=== PATIENT | female | born 1980 | race Caucasian/White ===

== ENCOUNTER → 2018-06-27 10:13 | Outpatient (CLI) | payer BC, SELFPAY ==
[2018-06-28 10:56] LABS: HSV 1 IgG < 0.91 index (0.00-0.90); HSV 2 IgG < 0.91 index (0.00-0.90)
[2018-07-01 22:42] LABS: HSV Culture Without Typing Positive (.)
== END ==
PROVIDERS: Visit Provider Obstetrics & Gynecology
DX: N76.0 Acute vaginitis (principal)
CPT/HCPCS: 36415; 86695; 86696; 87255

== ENCOUNTER → 2018-11-03 | Outpatient (CLI) | payer BC, SELFPAY ==
[2018-11-05 05:06] LABS: Immunoglobulin G 769 mg/dL (700-1600)
[2018-11-07 11:48] LABS: Immunoglobulin M 60 mg/dL (26-217)
[2018-11-09 08:57] LABS: HPV HC, High Risk Negative (Negative)
== END | disposition home or self-care (01) ==
LOC: WOBLAB 13:29
PROVIDERS: Visit Provider Obstetrics & Gynecology
DX: A60.04 Herpesviral vulvovaginitis (principal); Z12.4 Encounter for screening for malignant neoplasm of cervix
CPT/HCPCS: 36415; 82784; 87624; 88175; G0145

== ENCOUNTER → 2018-11-21 14:46 | Outpatient (CLI) | payer BC, SELFPAY ==
[2015-12-08 11:10] VITALS: BMI 21.3
[2018-11-23 12:39] LABS: HSV 2 IgG < 0.91 index (0.00-0.90)
== END ==
PROVIDERS: Visit Provider Obstetrics & Gynecology
DX: A60.04 Herpesviral vulvovaginitis (principal)
CPT/HCPCS: 86695; 86696

== ENCOUNTER → 2019-12-19 14:32 | Outpatient (CLI) | payer BC, SELFPAY ==
[2015-12-08 11:10] VITALS: BMI 21.3
[2019-12-19 15:57] LABS: Color, Urine Yellow (Yellow); Glucose, Dipstick Normal (Normal); Ketone-Dipstick Negative (Negative); Leukocyte Esterase-Dipstick Negative /ul (Negative); Nitrite-Dipstick Negative (Negative); Occult Blood-Urine 10 /ul (Negative); Protein-Dipstick Negative (Negative); Specific Gravity, Urine 1.005 (1.002-1.030); Urine Bilirubin Dipstick Negative (Negative); Urine Clarity Clear (Clear); Urine Urobilinogen Normal (Normal)
== END ==
PROVIDERS: Visit Provider Obstetrics & Gynecology
DX: R30.0 Dysuria (principal)
CPT/HCPCS: 81002; 87086

== ENCOUNTER 2020-04-08 05:58 | Day surgery (SDC) | payer BC, SELFPAY ==
[2020-04-04 15:44] LABS: Hematocrit 38.1 % (37-47); Hemoglobin 12.5 g/dL (12.0-15.0); Mean Corp Hgb Conc 32.8 g/dL (32-36); Mean Corpuscular Volume 91.6 fL (81-99); Mean Platelet Vol. 10.1 fl (6.2-12.0); Platelet Count 329 K/mm3 (150-450); RBC Distribution Width CV 12.2 % (11.6-14.6); RBC Distribution Width SD 41.2 fl (35.1-43.9); Red Blood Count 4.16 M/mm3 (4.2-5.4); White Blood Count 6.2 K/mm3 (4.4-11.0)
--- NOTE | 2020-04-07 18:18 | PCM.HPOB.BLA ---
History and Physical Date of Admission: 04/08/20 Surgical History and Physical Name: ALTAF RICHTER Age: 40 Date of : 1980 Altaf Richter, a 40 year old female 2 0 0 0 2, presents for Total laparoscopic hysterectomy, bilateral salpingectomy, cystoscopy. Possible removal of filshie clips on April 08, 2020 at 7:30. -- Pt with pain with intercourse for 2 months. Pain resolves within 30 minutes with rest. Pt also started to have diarrhea, normally has constipation with IBS and known diverticular disease. Denies fevers chills, n/v. Some pain with urination. Spotting after intercourse a few times, this is common for her since she was young. She went to see PCP and they advised daily fiber which did not help and made things worse. She then became very constipated. She also reports gluten and dairy allergy. She is on a Probiotic but not taking this on regular basis yet. Encouraged to try taking daily before deciding this won't help. She is concerned about the clips that are not in place. Had a colonoscopy at [facility] on 02-23-[address] Corbett. That was overall negative. Distress increases with lifting and IC and physical activity. Abdominal pain which began 4 months ago. Altaf claims it started h/o of IBS It is located in the lower abdomen. It is aggravated by lifting, intercourse. Additional comments are: trying to find answers. MEDICATIONS HISTORY: Current medications prescribed by our practice are: 1. Valtrex 1 gram tablet, as needed Patient is also takin. Adderall XR 20 mg capsule,extended release 24hr, one daily 2. Prilosec 40 mg capsule,delayed release(/EC), one daily ALLERGIES: Skelaxen, Seizures, Skelaxin and Seizures Infections - Chicken pox, HPV, Gilchrist and HSV Illnesses - gastric ulcers, diverticulosis Hospitalizations - Childbirth, see surgery and Hospitalized x 3 days for Mastitis after 2nd delivery Hx Cryo and H. Pylori; Review of Systems: GENERAL - pelvic pain SKIN - Denies skin changes EYES - Denies visual changes EARS - Denies difficulty hearing NOSE - Denies nasal congestion or bleeding MOUTH - Denies sore throat or difficulty swallowing NECK - Denies pain or swelling RESPIRATORY - Denies shortness of breath or wheezing CARDIOVASCULAR - Denies palpitations or chest pain GASTROINTESTINAL - constipation GENITOURINARY - Denies dysuria, frequency of urination, incontinence of urine MUSCULOSKELETAL - Denies joint or muscle pain NEUROLOGICAL - Denies localized numbness or weakness PSYCHIATRIC - Denies depression or anxiety ENDOCRINE - Denies heat or cold intolerance, weight loss or gain HEMATO-IMMUNOLOGIC - Denies excessive bleeding with cuts SOCIAL HISTORY: Alcohol Use - drinks occasionally Smoking - denies smoking Employer - [employer] Job Description - Billing / Insurance Illicit Drug Use - denies use of street drugs Sexual Activity - single sexual partner Spouse-Sig Other Name - single, SO Michael Control - Tubal FAMILY HISTORY: Maternal Grandmother: Heart Disease. Maternal Grandfather: DM II. Paternal Grandmother: DM II. MENSTRUAL HISTORY: LMP Known?- DefiniteAmount/Duration - 7 days, Regularity - Regular, Frequency - variable days, LMP - 03/29/20, Age Onset Menarche - 14 PAST PREGNANCIES: Total Pregnancies - 2; Full Term Pregnancies - 2; Premature - 0; Abortions, Induced - 0; Abortions, Spontaneous - 0; Ectopics - 0; Multiple Births - 0; Living Children - 2 SURGICAL HISTORY: 1. Multiple surgeries Achilles Tendons Bilaterally-- Defect ; - 2. Tonsillectomy + Adenoidectomy ; - 3. Tubal 2003 ; - PHYSICAL EXAM BP- 116/80 Sitting, Right arm, regular cuff Weight- 114.31082 lbs Height- 64.25 inch BMI:19.46 CONSTITUTIONAL - NAD, well nourished, and well developed SKIN - No rash, lesions, or ulcers HEENT - Normocephalic, PERRLA, EOMI NECK - No nodes, no nuchal rigidity and thyroid normal size and texture LYMPH NODES - Palpation of lymph nodes in neck and groins within normal limits LUNGS - CTA x2 without wheezes, crackles or rales CARDIAC - Regular rate and rhythm without rubs, murmurs, or gallops ABDOMEN - Without hepatosplenomegaly, distention, masses, rebound, or guarding; normal bowel sounds; no hernias EXTREMITIES - No edema or calf tenderness NEUROLOGICAL - Cranial nerves II-XII grossly intact PSYCHIATRIC - A and O to time, place, person, mood and affect External Genital Vagina - non-tender without lesions Urethra/Urethral Meatus - non-tender Bladder - no tenderness Vagina - vaginal vásquez are pink and moist without loss of rugae and no evidence of atropy Cervix - without cervical motion tenderness and has normal size and features without evident lesions Uterus - 5-6 cm in size, mobile and nontender Adnexa - clear without masses or tenderness ASSESSMENT/PLAN: 1. Dysmenorrhea, Unspecified ultrasound performed in office with uterus 8.7x5.4x4.5, with normal endometrium, normal uterus. Bilateral ovarian cysts 1.5cm R>L Inflamed bowel noted at time of u/s. Saw GI, colonoscopy performed, bx neg. IBS dx by GI but reassured not cause of pelvic pain Pt saw PCP who did CT scanned showed filshie clips outside uterus. Pt with extremely painful periods unresolved by NSAIDs and Tylenol. Cleared by GI as not a cause of pain. Pt has painful intercourse along with pelvic pain between periods. Based on these pt elects for TLH BS, Cystoscopy, removal of filshie clips 3. Mixed Irritable Bowel Syndrome Diet changes now with regular bowel movements Saw Dr. Corbett GI, colonoscopy performed. Negative. No signs of reasons for pain 4. Other Ovarian Cysts Bilateral ovarian cysts 1.5cm R>L
[2020-04-08] VITALS (11 sets, daily range): BP systolic 106–132; BP diastolic 53–88; PULSE 59–95; RESP 14–100; TEMP 35.9–37.1; O2SAT 16–100; BMI 18.7
--- NOTE | 2020-04-08 | HYST_PTH ---
PATIENT: ALTAF RICHTER LOC: [facility] [place] U#:[id number] AGE/SX: 40/F ROOM: RE04/08/[address]: Dr. Enmanuel Bazan MD : 1980 BED: DIS: 04/08/2020 SPEC #: [id number] RECD: 04/08/20 11:15 STATUS: AMAYA SANKET #: [id number] KRISTA: 04/08/20 00:[address]: Enmanuel Bazan DEPT: SURGICAL PATHOLOGY RECD BY: Scar David ENTERED: 04/08/20 11:15 SP TYPE: HYSTERECT OTHR DR: KRYSTINA Jimenez Tissues: Uterus, NOS Procedures: Surgery Specimen Level V HEADER OPERATION: Hysterectomy, TLH, salpingectomy, cysto, possible removal of Filshie PRE-OP DIAGNOSIS: Dysmenorrhea; painful intercourse along with pelvic pain between periods; bilateral ovarian cysts 1.5 cm R>L TISSUE SUBMITTED: Uterus, bilateral fallopian tubes MICROSCOPIC DIAGNOSIS Uterus, hysterectomy: Cervix - squamous metaplasia, mild chronic inflammation and nabothian cysts. Endometrium - secretory endometrium to transition endometrium. Myometrium - superficial adenomyosis. Right fallopian tube - benign paratubal cyst. Left fallopian tube - no pathologic change. AM:ever 04/09/20 MICROSCOPIC DESCRIPTION Slides are reviewed. GROSS DESCRIPTION Received in fixative is one container labeled with the patient's name and designated uterus. The specimen consists of a uterus with attached cervix and two detached fallopian tubes. The uterus with cervix measures 9 x 7.5 x 4 cm and weighs 118 gm. The ectocervix is oval in contour. No ectocervical lesions are identified. The myometrium measures 2.3 cm in average thickness and is free of mass lesions. The fallopian tubes are not designated. Both fallopian tubes have an average length of 5.5 cm and average diameter of 0.7 cm. One fallopian tube contains a smooth, glistening paratubal cyst containing clear fluid in its mid portion. The fimbrial ends are grossly unremarkable. Auctioneer Art sections are submitted in eight cassettes as follows: 1 - anterior cervix, 2 - posterior cervix, 3 & 4 - anterior uterine wall, 5 & 6 - posterior uterine wall, 7 - one fallopian tube with paratubal cyst, 8 - the other fallopian tube. / AM:ever 04/08/20 TC:5 CPT: 27742
[2020-04-08] MEDS: Lactated Ringers 1,000 ML 100 ML IV (06:40)
[2020-04-08] MEDS: Cefotetan 2 GM in 0.9% NS 100 ML IV (07:34)
[2020-04-08] MEDS: Lubricating Jelly 60 GM Tube 30 GM TOPICAL (08:00)
--- NOTE | 2020-04-08 09:56 | DCINST_ITS ---
Discharge Diet: No Restrictions Discharge Activity: May not drive while taking narcotic pain medications., May Shower, - - No tub baths for 2 weeks May resume sexual activity in: 2 weeks Lifting Restrictions: No lifting over 25 pounds for 2 to 3 weeks Call your doctor if your incision/area has: Foul Smelling Discharge Call your doctor if you observe: Fever of 101 or Higher, Shortness of breath, Chest pain Allergies/Adverse Reactions: Allergies gluten Allergy (Verified 04/08/20 06:31) Food Allergy lactase [From Dairy Aid] Allergy (Verified 04/08/20 06:31) Food Allergy metaxalone [From Skelaxin] Allergy (Verified 04/08/20 06:30) SEIZURE SEIZURE Medications to take at Discharge Dextroamphetamine/Amphetamine [Adderall 20 mg Tablet] 20 mg PO DAILY 12/07/15 Omeprazole 40 mg PO DAILY 12/07/15 Rizatriptan Benzoate [Rizatriptan] 5 mg PO DAILY 04/01/20 Oxycodone [Oxyir] 5 mg PO Q6H PRN PRN 3 Days #12 tab 04/08/20 The following prescriptions were given: Oxycodone [Oxyir] 5 mg PO Q6H PRN PRN 3 Days #12 tab PRN Reason: Pain Score 6-10 Transmission Status: Received by [facility] Primary Care Physician: Cinthia Virk PARALLEL COMPUTING SOFTWARE ENGINEER, PARALLEL COMPUTING SOFTWARE ENGINEER-C [Primary Care Provider] - Test Results: Test results from this visit will be discussed in further detail at your follow- up appointment, if applicable. Please Follow Up With: Enmanuel Bazan MD When: 2 to 3 weeks
--- NOTE | 2020-04-08 09:58 | PCM.OPRPT ---
Report of Operation Date of Procedure: 04/08/20 Pre-Operative Diagnosis: Dysmenorrhea, pelvic pain Post-Operative Diagnosis: Dysmenorrhea, pelvic pain Surgery/Procedure Performed:: Total laparoscopic hysterectomy bilateral salpingectomy, cystoscopy. Filshie clip removal Description of Surgical Findings:: Surgeon: Enmanuel Bazan MD Senior Technical Architect: Macarena Bazan DO (based on limited manipulative ability and difficulty of the procedure a surgeon as the critical care physician assistant was necessary) EBL: 50 cc Urine output: 300 cc IV fluids: 1050 cc Complications: None Specimen: Uterus, fallopian tubes Findings: Bilateral fallopian tubes status post tubal ligation via Filshie clips. Filshie clips in posterior cul-de-sac easily removed through trocar site. Otherwise normal uterus and ovaries. Moderate amount of bowel adhesions to the pelvic sidewall were noted. No pathology on postoperative cystoscopy. Consent: Patient with pelvic pain and dysmenorrhea so PCP and GI specialist status post colonoscopy no origins of GI or urologic findings. Patient in need of total laparoscopic hysterectomy bilateral salpingectomy removal of Filshie clips and cystoscopy. Patient understands the risk of the procedure include but are not limited to visceral or vascular injury, prolonged hospitalization, blood loss need for transfusion, reoperation. Patient states understanding wish to proceed. Procedure: Patient was brought back to the OR where general anesthesia found to be adequate. 2 g of Cefotan 10 were given for infection prophylaxis. Patient was apparent draped in a dorsolithotomy position with yellowfin stirrups. Weighted speculum was placed in the posterior aspect of the vagina and a single-tooth tenaculum was used to grasp anterior lip of cervix. Cervical dilators were used to dilate the cervix. Uterine manipulator was placed. Supraumbilical incision was made fascia was grasped with a Maria Elena clamp fascia was incised peritoneum grasped and incised. Garcia trocar was placed abdomen was insufflated. Above findings were noted. Bilateral 5 mm trochars were placed under direct visualization. Using a atraumatic grasper the left fallopian tube was identified out to the fimbriae mesosalpinx was cut and cauterized round ligament was dissected in order to dissect the anterior and posterior portion of the broad ligament uterine vessels were isolated cut and cauterized and dissected laterally beyond the level of colpotomy cup bladder flap was developed beyond the level of the colpotomy cup. In a similar fashion the right fallopian tube was identified to the fimbria and the mesosalpinx was cut and cauterized round ligament was cut and cauterized anterior posterior portions of the broad ligament were dissected bladder flap was continued completing the dissection beyond the level of the colpotomy cup. Uterine vessels were cut and cauterized lateralized beyond the level of the colpotomy cup. Circumferential incision was made around the colpotomy cup in order to make colpotomy. Uterus was removed. Uterus was closed vaginally in a continuous running locked fashion. Good hemostasis was noted. Cystoscopy was performed and above findings were noted bilateral ureteral jets were noted. Abdomen was observed laparoscopically with good hemostasis noted. Filshie clips removed x2. Abdomen was deflated trochars were removed under direct visualization. Good hemostasis noted. Garcia trocar site fascia was closed in a continuous running fashion. Skin was closed in a subcuticular fashion at all trocar sites. Good hemostasis noted. All counts correct x2. Patient tolerated the procedure well was brought to recovery in a stable condition. compliance associate: Macarena Bazan Type of Anesthesia:: General
[2020-04-08] MEDS: Ketorolac 30 MG/ML Syringe IV (11:50)
[2020-04-08] MEDS: oxyCODONE 5 MG Tablet PO (12:05)
== END 2020-04-08 12:51 | disposition home or self-care (01) ==
LOC: SDC 05:58 → AC 05:58
PROVIDERS: PCP Nurse Practitioner Family; Referring Provider Obstetrics & Gynecology; Visit Provider Obstetrics & Gynecology
PROC: 0UT94ZZ Resection of Uterus, Percutaneous Endoscopic Approach (ICD-10-PCS; CPT 58571; principal; 2020-04-08 07:10)
DX: N94.6 Dysmenorrhea, unspecified (principal); N94.10 Unspecified dyspareunia; N87.0 Mild cervical dysplasia; N80.0 Endometriosis of uterus; N88.8 Other specified noninflammatory disorders of cervix uteri; N83.291 Other ovarian cyst, right side; N83.292 Other ovarian cyst, left side; N83.8 Other noninflammatory disorders of ovary, fallopian tube and broad ligament; K58.2 Mixed irritable bowel syndrome; K21.9 Gastro-esophageal reflux disease without esophagitis; Z20.828 Contact with and (suspected) exposure to other viral communicable diseases; Z79.899 Other long term (current) drug therapy
CPT/HCPCS: 00840; 58571; 36415; 85027; 86850; 86900; 86901; 87426; 88307; C9803; J7120; J2405

== ENCOUNTER 2020-04-09 05:22 | Observation (INO) | payer BC, SELFPAY ==
[2020-04-08 06:32] VITALS: BMI 18.7
[2020-04-09] VITALS (8 sets, daily range): BP systolic 98–111; BP diastolic 52–64; PULSE 68–87; RESP 16–18; TEMP 36.6–37; O2SAT 98–100; BMI 20.1; BMI 20.5
[2020-04-09] MEDS: 0.9% Normal Saline 1,000 ML 100 ML IV ×2 (05:40→14:51)
[2020-04-09] MEDS: 0.9% Saline Lock 10 ML Syringe IV (05:43)
[2020-04-09] MEDS: Acetaminophen 500 MG Tablet 1000 MG PO ×4 (06:24→23:42)
--- NOTE | 2020-04-09 06:49 | NURSING ---
straight cath pt, pr order. obtained 1200 ml of clear yellow urine. pt tolerated well.
[2020-04-09 07:07] LABS: Absolute Lymphocyte Count 1.64 X10^3/uL (0.83-4.51); Basophil# 0.02 X10^3/uL; Basophil% 0.2 % (0-1); Hematocrit 27.9 % (37-47); Hemoglobin 8.5 g/dL (12.0-15.0); Lymphocyte # 1.64 X10^3/ul (4.0); Lymphocyte % 13.1 % (19-41); Mean Corp Hgb Conc 30.5 g/dL (32-36); Mean Corpuscular Hgb 30.4 pg (27.0-32.0); Mean Corpuscular Volume 99.6 fL (81-99); Mean Platelet Vol. 10.5 fl (6.2-12.0); Monocyte# 0.77 X10^3/uL; Monocyte% 6.2 % (0-10); NRBC Flagged by Analyzer 0 % (0-5); Neutrophil # 10.01 X10^3/uL (2.7-7.7); Neutrophil % 80.1 % (47-70); Platelet Count 236 K/mm3 (150-450); RBC Distribution Width CV 12.4 % (11.6-14.6); RBC Distribution Width SD 45.3 fl (35.1-43.9); White Blood Count 12.5 K/mm3 (4.4-11.0)
[2020-04-09 07:34] LABS: Anion Gap 9 (5-15); BUN 6 mg/dL (7-18); BUN/Creat Ratio 10.8 RATIO (10-20); Calcium,Total 7.9 mg/dL (8.5-10.1); Chloride 103 mmol/L (98-107); Creatinine, Serum 0.55 mg/dL (0.55-1.02); EST Glomerular Filtration Rate 130 mL/min (>60); Est Glom Filt Rate - Afr Amer 157 mL/min (>60); Estimated Creatinine Clearance 119.24 ml/min; Glucose 93 mg/dL (74-106); Potassium 4.5 mmol/L (3.5-5.1); Sodium Level 134 mmol/L (136-145)
[2020-04-09] MEDS: oxyCODONE 5 MG Tablet PO ×4 (07:48→21:18)
[2020-04-09 14:24] LABS: Hematocrit 22.7 % (37-47); Hemoglobin 7.3 g/dL (12.0-15.0); Mean Corp Hgb Conc 32.2 g/dL (32-36); Mean Corpuscular Hgb 29.9 pg (27.0-32.0); Mean Platelet Vol. 10.6 fl (6.2-12.0); Platelet Count 265 K/mm3 (150-450); RBC Distribution Width CV 12.6 % (11.6-14.6); RBC Distribution Width SD 43.3 fl (35.1-43.9); Red Blood Count 2.44 M/mm3 (4.2-5.4); White Blood Count 10.9 K/mm3 (4.4-11.0)
[2020-04-09 14:49] LABS: Anion Gap 4 (5-15); BUN 4 mg/dL (7-18); BUN/Creat Ratio 7.1 RATIO (10-20); Calcium,Total 7.8 mg/dL (8.5-10.1); Chloride 103 mmol/L (98-107); Creatinine, Serum 0.56 mg/dL (0.55-1.02); EST Glomerular Filtration Rate 127 mL/min (>60); Est Glom Filt Rate - Afr Amer 153 mL/min (>60); Estimated Creatinine Clearance 117.11 ml/min; Glucose 95 mg/dL (74-106); Potassium 3.6 mmol/L (3.5-5.1); Sodium Level 134 mmol/L (136-145)
--- NOTE | 2020-04-09 15:33 | NURSING ---
DAUGHTER SHANTEL HAS CALLED SEVERAL TIMES THIS SHIFT FOR MEDICAL UPDATES. SPOKE W/ & HE WILL CALL HER AFTER HE VISITS LATER (AFTER OFFICE HOURS).
--- NOTE | 2020-04-09 18:27 | HP.PCM_ITS ---
History and Physical Date of Admission: 04/09/20 Chief complaint: Dizziness History of present illness: 40-year-old G2, P2 status post total laparoscopic hysterectomy bilateral salpingectomy and cystoscopy on 05/08/2020 arrived to [facility] ER with dizziness and feelings of passing out. These feelings of passing out occurred while bearing down while going to the bathroom. And when transitioning from laying to standing at home. Patient transferred to [facility] arrives with decreased dizziness some abdominal pain mild nausea no vomiting. Denies chest pain, shortness of breath, headache, visual changes, fevers, chills. Obstetric history status post 2 vaginal deliveries Past medical history: GERD, HSV, diverticulosis Past surgical history total laparoscopic hysterectomy bilateral salpingectomy cystoscopy on 04/08/2020 Tonsil and adenoids Tubal ligation Achilles surgery Allergies: No known drug allergies Family history: Denies history of DVT or PE Social history: Denies smoking, alcohol use, drug use Review of systems: besides the above pertinent positives a full review of systems was performed a nd found to be negative Physical exam: Vital Signs Temp Pulse Resp BP Pulse Ox 04/09/20 14:47 98.4 F 84 16 99/62 100 04/09/20 08:51 97.9 F 85 16 106/60 99 04/09/20 07:55 68 General: Normal-appearing no acute distress HEENT: Normocephalic atraumatic no cervical lymphadenopathy Cardiac: Regular rate and rhythm no murmurs rubs or gallops Respiratory: Clear to auscultation bilaterally no wheezes rales or crackles Abdomen: Soft, appropriately tender, mildly distended. Positive bowel sounds. Negative for rebound tenderness or guarding. Laparoscopic incisions clean dry and intact Extremities: No peripheral edema normal peripheral pulses Psych: Normal affect normal demeanor nonpressured speech Diagnostic testing/imaging: I reviewed the records at [facility] CBC performed white blood cell count 12.5 hemoglobin 9.6 hematocrit 27.7 platelets 322 at 01:18 on 04/09/2020. BMP reviewed shows glucose 139 sodium 128 potassium 4.4 chloride 9.5 creatinine le delmer 0.84 last 27 AST 9 ALT 14 lipase 24. EKG showed sinus rhythm. CT of the abdomen and pelvis with IV contrast only on 04/09/2020: With impression showing 6 cm pelvic hematoma post hysterectomy, free free air and moderate free fluid. Laboratory Results - last 24 hr 04/09/20 04/09/20 04/09/20 06:56 06:56 14:00 WBC 12.5 H 10.9 RBC 2.80 L 2.44 L Hgb 8.5 L 7.3 L Hct 27.9 L 22.7 L MCV 99.6 H D 93.0 D MCH 30.4 29.9 MCHC 30.5 L D 32.2 D RDW Std Deviation 45.3 H 43.3 RDW Coeff of Marge 12.4 12.6 Plt Count 236 265 MPV 10.5 10.6 Immature Gran % (Auto) 0.400 Neut % (Auto) 80.1 H Lymph % (Auto) 13.1 L Hampton % (Auto) 6.2 Eos % (Auto) 0.0 Baso % (Auto) 0.2 Absolute Neuts (auto) 10.0 H Absolute Lymphs (auto) 1.64 Nucleated RBC % 0 Sodium 134 L Potassium 4.5 Chloride 103 Carbon Dioxide 22.0 Anion Gap 9 BUN 6 L Creatinine 0.55 Estim Creat Clear Calc 119.24 Est GFR (MDRD) Af Amer 157 Est GFR (MDRD) Non-Af 130 BUN/Creatinine Ratio 10.8 Glucose 93 Calcium 7.9 L 04/09/20 14:00 WBC RBC Hgb Hct MCV MCH MCHC RDW Std Deviation RDW Coeff of Marge Plt Count MPV Immature Gran % (Auto) Neut % (Auto) Lymph % (Auto) Hampton % (Auto) Eos % (Auto) Baso % (Auto) Absolute Neuts (auto) Absolute Lymphs (auto) Nucleated RBC % Sodium 134 L Potassium 3.6 Chloride 103 Carbon Dioxide 27.0 Anion Gap 4 L BUN 4 L Creatinine 0.56 Estim Creat Clear Calc 117.11 Est GFR (MDRD) Af Amer 153 Est GFR (MDRD) Non-Af 127 BUN/Creatinine Ratio 7.1 L Glucose 95 Calcium 7.8 L Assessment and plan: 40-year-old postoperative day 1 status post total laparoscopic hysterectomy bilateral salpingectomy cystoscopy with CT scan showing pelvic hematoma. Patient seen and examined at 08 30 with improved dizziness but overall still let hargic abdomen soft nontender some gassy pain from laparoscopy. Patient having difficulty voiding straight cath for 1200 cc. Vital signs overall stable at that time. Hemoglobin decreased from [facility] ER visit. Discussed lab results at 1300 with nursing showing stable vital signs but decreasing hemoglobin, per RN improving symptomatically but patient still not voiding repeat straight cath 650 cc. Patient again seen and examined at 1800 patient now up and walking in room, with no dizziness, but does describe some abdominal discomfort still feels distention and gas pain that is improving with simethicone. Patient is now voiding spontaneously. Latest hemoglobin 7.3. Exam unchanged from morning exam. Based on minimal blood loss in OR, stable vital signs, improving symptoms continue expectant management. Cannot rule out expanding hematoma but with stable vital signs, benign exam, and symptomatically improving seems less likely. Discussed results with patient including options for reoperation or transport for interventional radiology evaluation. Patient wishes for expectant management she does feel better. Will repeat labs tonight. Did discuss risk benefits alternatives of blood transfusion with patient including but not limited to blood transfusion reactions, infection. Patient stated understanding and agrees to blood transfusion if hemoglobin less than 7.
[2020-04-09 19:05] LABS: Absolute Lymphocyte Count 2.06 X10^3/uL (0.83-4.51); Absolute Neutrophil Count 5.3 X10^3/uL (2.0-7.7); Basophil# 0.02 X10^3/uL; Basophil% 0.2 % (0-1); Eosinophil# 0.07 X10^3/uL; Eosinophils% 0.9 % (0-5); Hematocrit 20.6 % (37-47); Hemoglobin 6.7 g/dL (12.0-15.0); Lymphocyte # 2.06 X10^3/ul (4.0); Lymphocyte % 25.3 % (19-41); Mean Corp Hgb Conc 32.5 g/dL (32-36); Mean Corpuscular Hgb 30.5 pg (27.0-32.0); Mean Corpuscular Volume 93.6 fL (81-99); Monocyte# 0.67 X10^3/uL; Monocyte% 8.2 % (0-10); NRBC Flagged by Analyzer 0 % (0-5); Neutrophil # 5.29 X10^3/uL (2.7-7.7); Platelet Count 219 K/mm3 (150-450); RBC Distribution Width CV 12.6 % (11.6-14.6); RBC Distribution Width SD 43.1 fl (35.1-43.9); White Blood Count 8.1 K/mm3 (4.4-11.0)
[2020-04-09 19:22] LABS: Anion Gap 4 (5-15); BUN 4 mg/dL (7-18); BUN/Creat Ratio 7.4 RATIO (10-20); Calcium,Total 7.7 mg/dL (8.5-10.1); Chloride 104 mmol/L (98-107); Creatinine, Serum 0.54 mg/dL (0.55-1.02); EST Glomerular Filtration Rate 133 mL/min (>60); Est Glom Filt Rate - Afr Amer 161 mL/min (>60); Estimated Creatinine Clearance 121.44 ml/min; Glucose 99 mg/dL (74-106); Potassium 3.7 mmol/L (3.5-5.1); Sodium Level 135 mmol/L (136-145)
[2020-04-09] MEDS: Pantoprazole Sodium 40 MG Tablet PO (19:59)
[2020-04-10 00:40] VITALS: BP 98/57; PULSE 63; RESP 16; TEMP 36.9; O2SAT 97
[2020-04-10 01:13] VITALS: BP 102/51; PULSE 80; RESP 16; TEMP 36.9; O2SAT 99
[2020-04-10] MEDS: 0.9% Normal Saline 1,000 ML 100 ML IV (01:20)
[2020-04-10 05:27] VITALS: BP 105/55; PULSE 84; RESP 18; TEMP 36.9; O2SAT 100
[2020-04-10] MEDS: oxyCODONE 5 MG Tablet PO ×2 (05:31→11:13)
[2020-04-10 06:02] LABS: Absolute Lymphocyte Count 1.86 X10^3/uL (0.83-4.51); Absolute Neutrophil Count 3.2 X10^3/uL (2.0-7.7); Basophil# 0.01 X10^3/uL; Basophil% 0.2 % (0-1); Eosinophil# 0.14 X10^3/uL; Eosinophils% 2.4 % (0-5); Hematocrit 22.3 % (37-47); Hemoglobin 7.1 g/dL (12.0-15.0); Lymphocyte # 1.86 X10^3/ul (4.0); Lymphocyte % 32.4 % (19-41); Mean Corp Hgb Conc 31.8 g/dL (32-36); Mean Corpuscular Hgb 29.1 pg (27.0-32.0); Mean Corpuscular Volume 91.4 fL (81-99); Mean Platelet Vol. 10.3 fl (6.2-12.0); Monocyte# 0.53 X10^3/uL; Monocyte% 9.2 % (0-10); NRBC Flagged by Analyzer 0 % (0-5); Neutrophil # 3.19 X10^3/uL (2.7-7.7); Neutrophil % 55.6 % (47-70); Platelet Count 166 K/mm3 (150-450); RBC Distribution Width CV 13.6 % (11.6-14.6); RBC Distribution Width SD 46.5 fl (35.1-43.9); Red Blood Count 2.44 M/mm3 (4.2-5.4); White Blood Count 5.7 K/mm3 (4.4-11.0)
--- NOTE | 2020-04-10 06:31 | PCM.PN.OB ---
Subjective: Patient continues to improve. Pain minimal and much improved from yesterday. Minimal to no nausea, no vomiting. Patient denies dizziness weakness or lightheadedness. Denies chest pain, shortness of breath, fevers or chills. - Physical Exam Vitals/I&O's: Vital Signs Temp Pulse Resp BP Pulse Ox 98.4 F 84 18 105/55 L 100 04/10/20 05:27 04/10/20 05:27 04/10/20 05:27 04/10/20 05:27 04/10/20 05:27 Oxygen Delivery Method Room Air Weight: 121 lb 4.068 oz Body Mass Index (BMI) 20.1 Intake and Output for Last 24 Hours 04/08/20 04/09/20 04/10/20 23:59 23:59 23:59 Intake Total 5253.33 / 5253.33 403.33 / 403.33 Output Total 4400 / 4400 Balance 853.33 / 853.33 403.33 / 403.33 General: Alert, Oriented x3, Cooperative, No apparent distress, Well developed, Well nourished HEENT: Atraumatic, PERRLA, Normocephalic Oral: Moist Mucosa Neck: Supple, No JVD Lungs: Clear to auscultation, Normal air movement, No rhonchi, No wheeze, No rales Cardiovascular: Regular rate, Regular Rhythm, Normal S1, Normal S2, No murmurs Abdomen: Bowel Sounds Present, Soft, Non-Distended, - - Appropriately tender status post surgery. Laparoscopic incisions clean dry and intact. Negative for rebound tenderness or guarding Extremities: No clubbing, No cyanosis, No edema, Capillary Refill Less than 3 Seconds Neurological: Cranial nerves II-XII grossly intact, Motor Exam 5/5 strength throughout Psych/Mental Status: Normal Affect, Appropriate, Alert and oriented to time, place, person, mood and affect Laboratory Results 04/09/20 06:56: WBC 12.5 H, RBC 2.80 L, Hgb 8.5 L, Hct 27.9 L, MCV 99.6 H D, MCH 30.4, MCHC 30.5 L D, RDW Std Deviation 45.3 H, RDW Coeff of Marge 12.4, Plt Count 236, MPV 10.5, Immature Gran % (Auto) 0.400, Neut % (Auto) 80.1 H, Lymph % (Auto) 13.1 L, Casey % (Auto) 6.2, Eos % (Auto) 0.0, Baso % (Auto) 0.2, Absolute Neuts (auto) 10.0 H, Absolute Lymphs (auto) 1.64, Nucleated RBC % 0 04/09/20 06:56: Sodium 134 L, Potassium 4.5, Chloride 103, Carbon Dioxide 22.0, Anion Gap 9, BUN 6 L, Creatinine 0.55, Estim Creat Clear Calc 119.24, Est GFR (MDRD) Af Amer 157, Est GFR (MDRD) Non-Af 130, BUN/Creatinine Ratio 10.8, Glucose 93, Calcium 7.9 L 04/09/20 14:00: WBC 10.9, RBC 2.44 L, Hgb 7.3 L, Hct 22.7 L, MCV 93.0 D, MCH 29.9, MCHC 32.2 D, RDW Std Deviation 43.3, RDW Coeff of Marge 12.6, Plt Count 265, MPV 10.6 04/09/20 14:00: Sodium 134 L, Potassium 3.6, Chloride 103, Carbon Dioxide 27.0, Anion Gap 4 L, BUN 4 L, Creatinine 0.56, Estim Creat Clear Calc 117.11, Est GFR (MDRD) Af Amer 153, Est GFR (MDRD) Non-Af 127, BUN/Creatinine Ratio 7.1 L, Glucose 95, Calcium 7.8 L 04/09/20 18:54: WBC 8.1, RBC 2.20 L, Hgb 6.7 L, Hct 20.6 L, MCV 93.6, MCH 30.5, MCHC 32.5, RDW Std Deviation 43.1, RDW Coeff of Marge 12.6, Plt Count 219, MPV 10.0, Immature Gran % (Auto) 0.400, Neut % (Auto) 65.0, Lymph % (Auto) 25.3, Casey % (Auto) 8.2, Eos % (Auto) 0.9, Baso % (Auto) 0.2, Absolute Neuts (auto) 5.3, Absolute Lymphs (auto) 2.06, Nucleated RBC % 0 04/09/20 18:54: Sodium 135 L, Potassium 3.7, Chloride 104, Carbon Dioxide 27.0, Anion Gap 4 L, BUN 4 L, Creatinine 0.54 L, Estim Creat Clear Calc 121.44, Est GFR (MDRD) Af Amer 161, Est GFR (MDRD) Non-Af 133, BUN/Creatinine Ratio 7.4 L, Glucose 99, Calcium 7.7 L 04/09/20 19:44: Blood Type AB POSITIVE, Antibody Screen NEGATIVE, Crossmatch See Detail 04/10/20 05:20: WBC 5.7, RBC 2.44 L, Hgb 7.1 L, Hct 22.3 L, MCV 91.4, MCH 29.1, MCHC 31.8 L, RDW Std Deviation 46.5 H, RDW Coeff of Marge 13.6, Plt Count 166, MPV 10.3, Immature Gran % (Auto) 0.200, Neut % (Auto) 55.6, Lymph % (Auto) 32.4, Casey % (Auto) 9.2, Eos % (Auto) 2.4, Baso % (Auto) 0.2, Absolute Neuts (auto) 3.2, Absolute Lymphs (auto) 1.86, Nucleated RBC % 0 Current Medications Acetaminophen (Acetaminophen 500 Mg Tablet) 1,000 mg PO Q6 [facility] Last Admin: 04/09/20 23:42 Dose: 1,000 mg Documented by: Sodium Chloride () 250 mls @ 15 mls/hr IV .[id number] PRN PRN Reason: Saline Flush Sodium Chloride () 250 mls @ 15 mls/hr IV .[id number] PRN PRN Reason: Additional IVPB Infusion Sodium Chloride () 1,000 mls @ 100 mls/hr IV .Q10H [facility] Last Admin: 04/10/20 01:20 Dose: 100 mls/hr Documented by: Ondansetron HCl (Ondansetron 4 Mg/2 Ml Vial) 4 mg IV Q4H PRN PRN PRN Reason: NAUSEA Oxycodone HCl (Oxycodone 5 Mg Tablet) 5 - 10 mg PO Q4H PRN PRN PRN Reason: Pain Score 4-10 Last Admin: 04/10/20 05:31 Dose: 10 mg Documented by: Pantoprazole Sodium (Pantoprazole Sodium 40 Mg Tablet) 40 mg PO DAILY [facility] Last Admin: 04/09/20 19:59 Dose: 40 mg Documented by: Simethicone (Simethicone 80 Mg Tablet) 80 mg PO TIDPC [facility] Last Admin: 04/09/20 17:35 Dose: 80 mg Documented by: Sodium Chloride (0.9% Saline Lock 10 Ml Syringe) 10 - 40 ml IV UD PRN PRN Reason: SALINE FLUSH Last Admin: 04/09/20 05:43 Dose: 10 ml Documented by: Medical Necessity - Tobacco Use Smoking Status: Never smoker Assessment/Plan All Active Problems Slurred speech (Acute) Postoperative day two status post total laparoscopic hysterectomy bilateral salpingectomy cystoscopy with possible pelvic hematoma. Continues to improve symptomatically. Now ambulating without difficulty, no dizziness or weakness. Pain well controlled. Previously gassy abdominal pain now improved with simethicone. Voiding spontaneously. Hemoglobin now 7.1 status post 1 unit of packed red blood cells finished at 01:15 last night. Based on patient symptoms continue to improve and vital signs remained stable with benign exam will transition to regular diet today. Pending symptomatic improvement and overall stability will consider discharge home today.
[2020-04-10] MEDS: Acetaminophen 500 MG Tablet 1000 MG PO ×2 (06:36→13:10)
[2020-04-10] MEDS: Pantoprazole Sodium 40 MG Tablet PO (08:29)
[2020-04-10 08:30] VITALS: PULSE 72
[2020-04-10 11:10] VITALS: BP 101/57; PULSE 67; RESP 16; TEMP 36.6; O2SAT 100
[2020-04-10] MEDS: 0.9% Saline Lock 10 ML Syringe IV (11:13)
--- NOTE | 2020-04-10 14:42 | DCINST_ITS ---
You will use the following diet at home:: No restrictions, Regular Discharge Activity: May not drive while taking narcotic pain medications., May Shower, - - No tub baths for 2 weeks. May resume sexual activity in: 2 weeks Lifting Restrictions: No lifting over 25 pounds for 3 weeks Call your doctor if your incision/area has: Foul Smelling Discharge Call your doctor if you observe: Fever of 101 or Higher, Shortness of breath, Chest pain Allergies/Adverse Reactions: Allergies gluten Allergy (Verified 04/08/20 06:31) Food Allergy lactase [From Dairy Aid] Allergy (Verified 04/08/20 06:31) Food Allergy metaxalone [From Skelaxin] Allergy (Verified 04/08/20 06:30) SEIZURE SEIZURE Medications to take at Discharge Dextroamphetamine/Amphetamine [Adderall 20 mg Tablet] 20 mg PO DAILY 12/07/15 Omeprazole 40 mg PO DAILY PRN 12/07/15 Rizatriptan Benzoate [Rizatriptan] 5 mg PO DAILY PRN 04/01/20 Oxycodone [Oxyir] 5 mg PO Q6H PRN PRN 3 Days #12 tab 04/08/20 Ondansetron HCl [Zofran] 4 mg PO Q4H PRN PRN #30 tab 04/10/20 Oxycodone [Oxyir] 5 mg PO Q6H PRN PRN 3 Days #12 tablet 04/10/20 The following prescriptions were given: Oxycodone [Oxyir] 5 mg PO Q6H PRN PRN 3 Days #12 tablet PRN Reason: Pain Score 6-10 Transmission Status: Received by [facility] Ondansetron HCl [Zofran] 4 mg PO Q4H PRN PRN #30 tab PRN Reason: Nausea Transmission Status[facility] Primary Care Physician: Cinthia Virk DEVELOPER ARCHITECT, DEVELOPER ARCHITECT-C [Primary Care Provider] - Test Results: Test results from this visit will be discussed in further detail at your follow- up appointment, if applicable. Please Follow Up With: Enmanuel Bazan MD When: 1 week
[2020-04-10 14:55] VITALS: BP 106/61; PULSE 71; RESP 16; TEMP 36.9; O2SAT 98
== END 2020-04-10 15:07 | disposition home or self-care (01) ==
PROVIDERS: Obstetrics & Gynecology; Admitting Provider Student in an Organized Health Care Education/Training Program; PCP Nurse Practitioner Family; Visit Provider Student in an Organized Health Care Education/Training Program
DX: R42 Dizziness and giddiness (principal); K21.9 Gastro-esophageal reflux disease without esophagitis; Z90.79 Acquired absence of other genital organ(s)
CPT/HCPCS: 36415; 36430; 80048; 85025; 85027; 86850; 86900; 86901; 86920; 86922; 96360; 96361; 99218; J7030; J7040; P9016; A4216; G0378; G0379

== ENCOUNTER → 2020-04-22 15:57 | Outpatient (CLI) | payer BC, SELFPAY ==
[2020-04-09 05:09] VITALS: BMI 20.1
[2020-04-22 17:17] LABS: Hematocrit 31.3 % (37-47); Hemoglobin 10.2 g/dL (12.0-15.0); Mean Corp Hgb Conc 32.6 g/dL (32-36); Mean Corpuscular Hgb 29.9 pg (27.0-32.0); Mean Corpuscular Volume 91.8 fL (81-99); Mean Platelet Vol. 9.6 fl (6.2-12.0); Platelet Count 545 K/mm3 (150-450); RBC Distribution Width SD 43.6 fl (35.1-43.9); Red Blood Count 3.41 M/mm3 (4.2-5.4); White Blood Count 10.4 K/mm3 (4.4-11.0)
[2020-04-22 17:28] LABS: Anion Gap 7 (5-15); BUN 8 mg/dL (7-18); BUN/Creat Ratio 13.2 RATIO (10-20); Calcium,Total 9.1 mg/dL (8.5-10.1); Chloride 104 mmol/L (98-107); Creatinine, Serum 0.61 mg/dL (0.55-1.02); EST Glomerular Filtration Rate 117 mL/min (>60); Est Glom Filt Rate - Afr Amer 141 mL/min (>60); Glucose 85 mg/dL (74-106); Potassium 3.9 mmol/L (3.5-5.1); Sodium Level 138 mmol/L (136-145)
== END ==
PROVIDERS: PCP Nurse Practitioner Family; Visit Provider Obstetrics & Gynecology
DX: R30.0 Dysuria (principal); R53.83 Other fatigue; N93.9 Abnormal uterine and vaginal bleeding, unspecified
CPT/HCPCS: 36415; 80048; 85027; 87086

== ENCOUNTER → 2020-05-02 14:34 | Outpatient (CLI) | payer BC, SELFPAY ==
[2020-04-09 05:09] VITALS: BMI 20.1
[2020-05-02 14:53] LABS: Hemoglobin 10.8 g/dL (12.0-15.0); Mean Corpuscular Hgb 28.4 pg (27.0-32.0); Mean Corpuscular Volume 94.7 fL (81-99); Mean Platelet Vol. 9.3 fl (6.2-12.0); Platelet Count 492 K/mm3 (150-450); White Blood Count 9.1 K/mm3 (4.4-11.0)
[2020-05-02 15:07] LABS: Anion Gap 7 (5-15); BUN 4 mg/dL (7-18); BUN/Creat Ratio 6.3 RATIO (10-20); Calcium,Total 8.7 mg/dL (8.5-10.1); Chloride 104 mmol/L (98-107); Creatinine, Serum 0.63 mg/dL (0.55-1.02); EST Glomerular Filtration Rate 111 mL/min (>60); Est Glom Filt Rate - Afr Amer 134 mL/min (>60); Glucose 81 mg/dL (74-106); Potassium 3.8 mmol/L (3.5-5.1); Sodium Level 136 mmol/L (136-145)
== END ==
PROVIDERS: PCP Nurse Practitioner Family; Visit Provider Obstetrics & Gynecology
DX: D64.9 Anemia, unspecified (principal); R53.83 Other fatigue
CPT/HCPCS: 36415; 80048; 85027; 87086

== ENCOUNTER 2021-07-15 16:44 | Outpatient (CLI) | payer BC, SELFPAY ==
[2021-07-17 21:07] LABS: Chlamydia By Nucleic Acid AMP Negative (Negative)
[2021-07-17 21:17] LABS: Gonococcus By Nucleic Acid AMP Negative (Negative)
== END 2021-07-15 23:59 | disposition home or self-care (01) ==
LOC: LABSPEC 16:45
PROVIDERS: PCP Nurse Practitioner Family; Visit Provider Obstetrics & Gynecology
DX: Z11.3 Encounter for screening for infections with a predominantly sexual mode of transmission (principal)
CPT/HCPCS: 87491; 87591

== ENCOUNTER 2021-08-11 15:59 | Outpatient (CLI) | payer BC, SELFPAY ==
--- NOTE | 2021-08-11 16:01 | BI_ITS ---
MAMMOGRAPHY - BILATERAL SCREENING REASON FOR EXAM: Female, 41 years old. Routine annual screening examination. PERTINENT HISTORY: Non-contributory. TECHNIQUE: Digital bilateral breast lakia (3D mammographic acquisition) in the CC and MLO projections. 2-D mediolateral oblique (MLO) and craniocaudad (CC) views of both breasts were obtained. CAD: Full Field Digital Mammography with Computer Added Detection was performed. COMPARISON: Comparison is made with prior study of 09/16/2012. FINDINGS: Breast Composition: The breasts are extremely dense, which lowers the sensitivity of mammography. There are no dominant masses or suspicious calcifications. No other significant abnormalities are identified. There has been no significant change since the prior study. BI/SCRN MAMM (CAD)W/LAKIA BILAT IMPRESSION: Stable bilateral screening mammogram. Yearly follow-up mammogram recommended. (A) ASSESSMENT CATEGORY: BIRADS Category 1: Negative. A letter regarding these results will be sent to the patient by the facility within 30 days. Approximately 10% of breast cancers are not detected by mammography. A normal mammogram should not delay biopsy of a clinically suspicious abnormality. [id number] Electronically Signed: Antonio Pendleton MD at 8:12 EDT ,
== END 2021-08-11 23:59 | disposition home or self-care (01) ==
LOC: OPBI 16:00
PROVIDERS: PCP Nurse Practitioner Family; Visit Provider Obstetrics & Gynecology
DX: Z12.31 Encounter for screening mammogram for malignant neoplasm of breast (principal)
CPT/HCPCS: 77063; 77067

== ENCOUNTER → 2022-10-08 | Outpatient (CLI) | payer BC, SELFPAY ==
--- NOTE | 2022-10-08 16:20 | BI_ITS ---
MAMMOGRAPHY - BILATERAL SCREENING REASON FOR EXAM: Female, 42 years old. Routine annual screening examination. PERTINENT HISTORY: Non-contributory. TECHNIQUE: Digital bilateral breast lakia (3D mammographic acquisition) in the CC and MLO projections. 2-D mediolateral oblique (MLO) and craniocaudad (CC) views of both breasts were obtained. CAD: Full Field Digital Mammography with Computer Added Detection was performed. COMPARISON: Mammogram from 08/11/2021, 09/16/2021. FINDINGS: Breast Composition: The breasts are extremely dense, which lowers the sensitivity of mammography. There are no dominant masses or suspicious calcifications. No other significant abnormalities are identified. There has been no significant change since the prior study. BI/SCRN MAMM (CAD)W/LAKIA BILAT IMPRESSION: Stable bilateral screening mammogram. Yearly follow-up mammogram recommended. (A) ASSESSMENT CATEGORY: BIRADS Category 1: Negative. A letter regarding these results will be sent to the patient by the facility within 30 days. Approximately 10% of breast cancers are not detected by mammography. A normal mammogram should not delay biopsy of a clinically suspicious abnormality. Electronically Signed: Jeffery Franco DO at 15:07 EDT ,
== END | disposition home or self-care (01) ==
LOC: OPBI 16:18
PROVIDERS: PCP Nurse Practitioner Family; Referring Provider Nurse Practitioner Family; Visit Provider Nurse Practitioner Family
DX: Z12.31 Encounter for screening mammogram for malignant neoplasm of breast (principal)
CPT/HCPCS: 77063; 77067

== ENCOUNTER → 2024-06-22 | Outpatient (CLI) | payer BC, SELFPAY ==
--- NOTE | 2024-06-22 13:13 | BI_ITS ---
PROCEDURE: SCRN MAMM (CAD)W/LAKIA BILAT REASON FOR EXAM: F, Age 44 y/o, no family history. Routine mammographic follow-up. TECHNIQUE: Bilateral screening digital breast tomosynthesis with 2D and 3D images. Computer aided detection. COMPARISON: Prior exam(s) dating back to October 08, 2022.. FINDINGS: The breasts are extremely dense which lowers the sensitivity of mammography. Stable examination. No suspicious masses, areas of developing architectural distortion, or suspicious calcifications. BI/SCRN MAMM (CAD)W/LAKIA BILAT IMPRESSION: Stable examination. BI-RADS 1: NEGATIVE. RECOMMEND ANNUAL MAMMOGRAPHIC SCREENI NG. Follow-up code: Routine Follow-up The patient will be notified of the results by letter. Reading Location: [id number]
== END | disposition home or self-care (01) ==
LOC: OPBI 13:11
PROVIDERS: PCP Nurse Practitioner Family; Referring Provider Nurse Practitioner Family; Visit Provider Nurse Practitioner Family
DX: Z12.31 Encounter for screening mammogram for malignant neoplasm of breast (principal)
CPT/HCPCS: 77063; 77067